=== PATIENT | female | born 1985 | race Caucasian/White ===

== ENCOUNTER 2018-07-26 03:38 | Emergency (ER) | payer SELFPAY ==
[~2018-07-26] VITALS: Ht 165.1 cm; Wt 136.1 kg
[2018-07-26 03:48] VITALS: BP 150/92
--- NOTE | 2018-07-26 03:49 | NUR ---
PT AMBULATD TO BED #9.
--- NOTE | 2018-07-26 03:49 | NUR ---
PT PRESENTED ER WITH C/O PAIN TO THE LEFT EAR. PT STATED SHE WAS SLEEPING AND FELT SOMETHING CRAWL INTO HER EAR. PT STATD SHE PUT A Q TIP IN EAR AND FELT IT GET PUSHED CLOSER TO THE EAR DRUMB AND FELT A CRUNCH SOUND. PT HAS SOME DICOMFORT LEVEL OF 5/10 AT THIS THIS TIME. PT DENIES N/V/D; SKIN IS PINK/WARM/DRY; AAOX4 WITH EVEN AND STEADY GAIT; VSS; PATIENT POSITIONED FOR COMFORT; HOB ELEVATED; BEDRAILS UP X2; BED DOWN. ER MD MADE AWARE OF PT STATUS.
[2018-07-26] MEDS ORDERED: LIDOCAINE 2% 1000 MG/50 ML VIAL INJ ONE (04:15)
--- NOTE | 2018-07-26 04:28 | NUR ---
EMT AT BEDSIDE
--- NOTE | 2018-07-26 05:05 | NUR ---
ALEJANDRO TERRY EXTRACTED A COCKROACH OUT OF PT LEFT EAR. PT HAS MINIMAL PAIN. PT TOLERATED IT WELL.
[2018-07-26 05:23] VITALS: BP 154/90
--- NOTE | 2018-07-26 05:23 | NUR ---
Patient discharged with v/s stable. Written and verbal after care instructions given and explained. Patient alert, oriented and verbalized understanding of instructions. Ambulatory with steady gait. All questions addressed prior to discharge. ID band removed. Patient advised to follow up with PMD. Rx of CORTISPORIN OTIC SUSPENSION given. Patient educated on indication of medication including possible reaction and side effects. Opportunity to ask questions provided and answered.
== END 2018-07-26 05:23 | disposition home or self-care (01) ==
LOC: MED 03:38
DX: T16.2XXA Foreign body in left ear, initial encounter (principal); R03.0 Elevated blood-pressure reading, without diagnosis of hypertension; X58.XXXA Exposure to other specified factors, initial encounter; Y93.89 Activity, other specified; Y92.89 Other specified places as the place of occurrence of the external cause; Y99.8 Other external cause status
CPT/HCPCS: 69200; 99284; J2001

== ENCOUNTER 2020-06-28 15:00 | Emergency (ER) | payer SELFPAY ==
[~2020-06-28] VITALS: Ht 165.1 cm; Wt 136.1 kg
[2020-06-28 15:38] VITALS: BP 161/108
--- NOTE | 2020-06-28 15:49 | NUR ---
C/O COUGH X 1.5 WEEKS, NAUSEA,SORE THROAT 5/10 , DIARRHEA X 3 DAYS. MED HX: DENIES. DENIES N/V/D; SKIN IS PINK/WARM/DRY; AAOX4 WITH EVEN AND STEADY GAIT; LUNGS CLEAR BL; HR EVEN AND REGULAR; PT DENIES ANY FEVER, CP OR SOB AT THIS TIME.
--- NOTE | 2020-06-28 16:39 | NUR ---
COVID SWAB DONE. SENT TO LAB.
[2020-06-28 16:44] VITALS: BP 134/89
--- NOTE | 2020-06-28 16:44 | NUR ---
Patient discharged with v/s stable. Written and verbal after care instructions given and explained. Patient alert, oriented and verbalized understanding of instructions. Ambulatory with steady gait. All questions addressed prior to discharge. ID band removed. Patient advised to follow up with PMD. Rx of IBUPROFEN, ZOFRAN, PROMETHAZINE & ALBUTEROL given. Patient educated on indication of medication including possible reaction and side effects. Opportunity to ask questions provided and answered.
== END 2020-06-28 16:44 | disposition home or self-care (01) ==
LOC: MED 15:00
DX: R05 Cough (principal); R11.2 Nausea with vomiting, unspecified; R19.7 Diarrhea, unspecified; Z20.828 Contact with and (suspected) exposure to other viral communicable diseases
CPT/HCPCS: 71045; 99284; U0003